=== PATIENT | male | born 1945 | race Hispanic/Latino ===

== ENCOUNTER 2018-03-23 19:28 | Inpatient (IN) | payer MEDICARE ==
[~2018-03-23 19:28] MED LIST: ISOVUE-370 76%-LOCM 1 ML ONE
[2018-03-23 19:59] LABS: #Basophils 0.1 thou/uL (0.0-0.2); #Eosinphils 0.3 thou/uL (0.0-0.7); #Lymphocytes 1.9 thou/uL (1.20-3.40); #Monocytes 0.5 thou/uL (0.11-0.59); #Neutrophils 5.5 thou/uL (1.40-6.50); %Basophils 0.8 % (0.0-1.0); %Eosinophils 3.6 % (0.0-10.0); %Lymphocytes 22.7 % (21.0-51.0); %Neutrophils 66.9 % (42.0-75.0); Mean Corpuscular HGB CONC 34.8 g/dL (32.0-36.0); Mean Corpuscular Hemoglobin 32.3 pg (27.0-31.0); Mean Corpuscular Volume 92.7 fl (80.0-94.0); Mean Platelet Volume 9.3 fL (7.4-10.4); Platelet Count 147 thou/uL (130-400); RBC Distribution Width 12.6 % (11.5-14.5); Red Blood Cell (RBC) Count 4.35 mill/uL (4.70-6.10); White Blood Cell (WBC) Count 8.3 thou/uL (4.8-10.8)
[2018-03-23 20:19] LABS: ALT (SGPT) 14 U/L (8-55); AST (SGOT) 16 U/L (5-34); Albumin 4.5 g/dL (3.4-4.8); Alkaline Phosphatase 83 U/L (40-150); Anion Gap 16 mmol/L (10-20); BUN (Urea Nitrogen) 26 mg/dL (8.4-25.7); Bilirubin, Total 0.5 mg/dL (0.2-1.2); Calc. Creatinine Clearance 0 mL/min (70-130); Calcium 10.5 mg/dL (7.8-10.44); Carbon Dioxide 20 mmol/L (23-31); Chloride 107 mmol/L (98-107); Estimated GFR-MDRD 78; Glucose 134 mg/dL (83-110); Protein, Total 8.5 g/dL (5.8-8.1); Sodium 138 mmol/L (136-145)
[2018-03-23] MEDS ORDERED: Ondansetron ODT 4 MG TAB ONE (21:02)
[2018-03-23 21:20] LABS: Bilirubin Negative (Negative); Blood, Urine Negative (Negative); Clarity CLEAR (Clear); Glucose, Urine (Dipstick) 100 mg/dL (Negative); Leukocyte Negative (Negative); Nitrite Negative (Negative); Protein, Urine (Dipstick) 30 mg/dL (Neg-Trace); Specific Gravity, Urine 1.024 (1.002-1.036); Urobilinogen 0.2 mg/dL (0.2-1.0)
[2018-03-23 21:22] LABS: Bacteria/HPF None Seen HPF (None Seen); Hyaline Casts/LPF 4-6 HYALINE CAST LPF (0-3 Hyaline); Pathc Cast-AUWi Flag 1.01 (0-2.49); Squamous Epithelial 0-3 HPF (0-3); WBC/HPF 0-3 HPF (0-3)
[2018-03-23] MEDS ORDERED: Fentanyl 100 MCG/2 ML VIAL ONE (21:58)
[2018-03-23 22:39] LABS: CK (CPK) 49 U/L (30-200); Lipase 71 U/L (8-78)
[2018-03-23 22:45] LABS: Troponin I Less than 0.010 ng/mL (< 0.028)
--- NOTE | 2018-03-23 22:49 | CT ---
CT ABDOMEN AND PELVIS WITH IV CONTRAST: 03/23/2018 PROVIDED CLINICAL HISTORY: Epigastric pain. FINDINGS: The visualized lung bases appear clear. The liver, spleen, pancreas, kidneys, and adrenal glands demonstrate an unremarkable CT appearance. There is a large tubular area of altered CT density involving the first, second, and third portions o f the duodenum. The Hounsfield units of this process are greater than would be expected for simple fl uid. This is likely intramural in nature, as this appears to extrinsically compress the duodenal lum en. This is suspicious for duodenal intramural hematoma. Foci of increased density within the presu med duodenal hematoma may reflect active extravasation. This is seen in the descending portion of th e duodenum, posteriorly. There is no significant gastric distention. There is no additional bowel dilatation, inflammatory fat stranding, free fluid, or free air apparent . Vascular calcifications are noted. The osseous structures demonstrate no concerning osteoblastic or osteolytic lesions. IMPRESSION: Findings suspicious for large intramural hematoma involving the first, second, and third portions of the duodenum, with possible active extravasation. Surgical consultation is recommended. Findings co mmunicated to Dr. Car at 10:31 p.m. on 03/23/2018. CODE CR POS: [facility]
[2018-03-23] MEDS ORDERED: Pantoprazole 40 MG VIAL ONE (23:05)
[2018-03-23] MEDS ORDERED: Promethazine HCl 25 MG/ML VIAL ONE (23:05)
[2018-03-24] MEDS ORDERED: Ondansetron ODT 4 MG TAB SL PRN ×2 (01:21→01:24)
[2018-03-24] MEDS ORDERED: Ondansetron HCl/PF 4 MG/2 ML Vial IVP PRN ×4 (01:21→15:52)
[2018-03-24] MEDS ORDERED: Promethazine HCl 25 MG/ML VIAL SLOW IVP PRN (01:21)
[2018-03-24] MEDS ORDERED: Labetalol HCl 100 MG/20 ML VIAL SLOW IVP PRN (01:43)
[2018-03-24 01:47] VITALS: BMI 20.9
[2018-03-24] MEDS: Sodium Chloride 0.9% 1,000 ML IV SCH (01:52)
[2018-03-24 02:05] LABS: Lactic Acid 2.4 mmol/L (0.5-2.2)
[2018-03-24] MEDS: Morphine 4 MG/ML VIAL SLOW IVP PRN ×3 (02:05→18:33)
[2018-03-24] MEDS: Pantoprazole 80 MG, Admixture Fee 1 EACH in Sodium Chloride 0.9% 100 ML IVP SCH ×2 (02:06→10:56)
[2018-03-24 02:15] LABS: Troponin I Less than 0.010 ng/mL (< 0.028)
[2018-03-24 05:18] LABS: #Lymphocytes 0.7 thou/uL (1.20-3.40); #Monocytes 0.2 thou/uL (0.11-0.59); %Basophils 0.2 % (0.0-1.0); %Eosinophils 0.2 % (0.0-10.0); %Lymphocytes 7.1 % (21.0-51.0); %Monocytes 1.6 % (0.0-10.0); %Neutrophils 90.9 % (42.0-75.0); Hemoglobin 12.9 g/dL (14.0-18.0); Mean Corpuscular HGB CONC 35.5 g/dL (32.0-36.0); Mean Corpuscular Hemoglobin 33.2 pg (27.0-31.0); Mean Corpuscular Volume 93.5 fl (80.0-94.0); Mean Platelet Volume 10.3 fL (7.4-10.4); Platelet Count 136 thou/uL (130-400); RBC Distribution Width 12.3 % (11.5-14.5); White Blood Cell (WBC) Count 9.9 thou/uL (4.8-10.8)
[2018-03-24] MEDS ORDERED: cloNIDine 0.1 MG TAB PO PRN (05:27)
[2018-03-24 05:35] LABS: Anion Gap 21 mmol/L (10-20); BUN (Urea Nitrogen) 26 mg/dL (8.4-25.7); Calc. Creatinine Clearance 59 mL/min (70-130); Calcium 9.6 mg/dL (7.8-10.44); Carbon Dioxide 18 mmol/L (23-31); Chloride 105 mmol/L (98-107); Estimated GFR-MDRD 76; Glucose 282 mg/dL (83-110); Magnesium 1.9 mg/dL (1.6-2.6); Phosphorus 4.3 mg/dL (2.3-4.7); Potassium 5.3 mmol/L (3.5-5.1); Sodium 139 mmol/L (136-145)
[2018-03-24 05:42] LABS: Troponin I 0.021 ng/mL (< 0.028)
[2018-03-24] MEDS ORDERED: Dextrose 5% in Water 1,000 ML IV PRN (08:02)
[2018-03-24] MEDS ORDERED: Acetaminophen 650 MG Suppository PR PRN (08:02)
[2018-03-24] MEDS ORDERED: HumaLOG 300 UNITS/3 ML VIAL SC PRN (08:02)
[2018-03-24] MEDS ORDERED: Dextrose 50% Abboject 50 ML SYRINGE SLOW IVP PRN (08:02)
--- NOTE | 2018-03-24 10:05 | CON ---
DATE OF CONSULTATION: 03/24/2018 REASON FOR CONSULTATION: Abdominal pain and severe weight loss. HISTORY: Mr. Corral is a 72-year-old male with history of hypertension and diabetes who presented to the ER last evening with worsening of his chronic abdominal pain. He relates having a 5-month his tory of having upper abdominal epigastric discomfort that is worsened by eating after dipak the flu over this winter. The pain is worsened with eating. He denies having any nausea or vomiting. He relates having early satiety. As a result, he has lost close to 25 pounds over the last 5 months. Yesterday afternoon the pain became much worse after eating some taco's. He did have associated na usea, vomiting. This prompted the ER evaluation. CT performed showed thickening of the duodenum wit h what appears to be an intramural process suggesting possible hematoma and a possible extravasation. However, he has not noted any overt bleeding or melena, however, the patient has poor eyesight. Hi s blood count was normal on admission. PAST MEDICAL HISTORY: 1. Hypertension. 2. Diabetes. 3. Negative screening colonoscopy [address] [facility] per patient. PAST SURGICAL HISTORY: No previous surgery. ALLERGIES: None. MEDICATIONS: At home include lisinopril 10 mg p.o. daily, metformin 1000 mg b.i.d., glyburide 2.5 mg every day. SOCIAL HISTORY: The patient is . He does smoke occasional cigar, consume 3-4 beers daily. FAMILY HISTORY: Negative for any known GI problem, liver disease, GI malignancy. REVIEW OF SYSTEMS: A 10-point review of systems was otherwise unremarkable without any pertinent pos itive or negative. PHYSICAL EXAMINATION: VITAL SIGNS: Temperature is 97.9, blood pressure 177/81, pulse of 80. GENERAL: He is alert, conversant, does not appear in any distress. HEENT: Shows anicteric sclerae. Oropharynx clear. NECK: Supple. CARDIOVASCULAR: Shows normal S1, S2 regular rate and rhythm. CHEST: Shows normal breath sounds, no adventitious sound. ABDOMEN: Flat. No distention, no tympany. He has active bowel sounds. Mild epigastric tenderness, but no guarding, tension or rebound. He has good bowel sounds. EXTREMITIES: Shows no edema. LABORATORY DATA: Electrolytes within normal range, creatinine 0.97, bilirubin 0.5, AST of 16, ALT 14 , alkaline phosphatase 83. WBC is 9.9, hemoglobin 12.9, platelet count of 136, MCV of 93.5. Abdominal pelvic CT showed suspicion for a large intramural hematoma involving most of the duodenum w ith possible active extravasation. Other intraabdominal organs appeared normal. ASSESSMENT: Abnormal CT with large intramural process involving the duodenum. Clinically, he does n ot have any overt gastrointestinal bleed. His blood count is otherwise normal. Symptomatically, he has had symptoms for the last 5-6 months suggests chronicity to his problem. A malignant process nee ds to be excluded. He has not had any blunt trauma other than a fall off a ladder on his lawn which he landed on his back 4 months ago. Abdominal exam is very benign at the present time. RECOMMENDATIONS: 1. Proceed with diagnostic esophagogastroduodenoscopy. 2. May need a diagnostic laparoscopy if EGD is nondiagnostic. 3. Indication including risks of procedure were discussed with patient and family, all questions ans wered.
[2018-03-24] MEDS ORDERED: Lidocaine 1% PF 5 ML VIAL ONE (12:05)
[2018-03-24] MEDS ORDERED: PROPOFOL 200 MG/20 ML VIAL ONE (12:05)
--- NOTE | 2018-03-24 14:14 | HP ---
REASON FOR ADMISSION: Duodenal mass/hematoma. HISTORY OF PRESENTING ILLNESS: Patient gives history of abdominal pain off and on from last 5 months. He states it all started after he had very bad flu. The patient also complains of loss of appetite and fullness soon after eating. He has not been eating much. He feels like he has got a knot in his epigastric area. He sometimes has to turn to left lateral side at night to get relief from discomfort after eating. He also mentions that he has lost nearly 23 pounds. He was weighing 174 pounds in October, currently 147 pounds. Around 11:00 a.m. yesterday, his abdominal pain and uneasy feeling came back. Around 3 :00 p.m. it got worse and he tried to lay down, but still did not get any relief. At 6:30 p.m., his finally decided to bring him to the emergency room as he vomited once at home. He further vomited nearly 4 times last night and once this morning. No complaints of any bleeding per rectum. The patient states he has had cataract surgery and does not really see well to see if he is bleeding. No hematemesis. No prior history of peptic ulcer disease. PAST MEDICAL AND SURGICAL HISTORY: History of hypertension, diabetes mellitus type 2, cataract surgery. CURRENT MEDICATIONS: Lisinopril 10 mg daily, metformin 1000 mg twice daily, glyburide 2.5 mg daily. ALLERGIES: No known drug allergies. PERSONAL HISTORY: Drinks 3-4 beers daily. Quit smoking 23 years ago, prior to which, smoked one pack a day for nearly 10 years. Does not abuse drugs. Lives with his . FAMILY HISTORY: Mother in her 70s, she had history of diabetes. He does not know much about his father as he is from his when he was a small kid. He is 1 among 13 siblings, three were killed, 2 at a very young age and only 3 are alive at present. None of the siblings have had cancer. CODE STATUS: FULL. Power of mergers and acquisitions attorney is his of 48 years. REVIEW OF SYSTEMS: The following complete review of systems was negative, unless otherwise mentioned in the HPI or below: Constitutional: Weight loss or gain, ability to conduct usual activities. Skin: Rash, itching. Eyes: Double vision, pain. ENT/Mouth: Nose bleeding, neck stiffness, pain, tenderness. Cardiovascular: Palpitations, dyspnea on exertion, orthopnea. Respiratory: Shortness of breath, wheezing, cough, hemoptysis, fever or night sweats. Gastrointestinal: Poor appetite, abdominal pain, heartburn, nausea, vomiting, constipation, or diarrhea. Genitourinary: Urgency, frequency, dysuria, nocturia. Musculoskeletal: Pain, swelling. Neurologic/Psychiatric: Anxiety, depression. Allergy/Immunologic: Skin rash, bleeding tendency. PHYSICAL EXAMINATION: GENERAL: Patient is a 72-year-old male who is currently not in any acute distress. VITAL SIGNS: Blood pressure 170/86, pulse 86 per minute, respiratory rate 20 per minute, temperature 97.7 degrees Fahrenheit, saturating 98% on room air. NECK: Supple, no elevated JVD. EYES: Extraocular muscles intact. Pupils reacting to light. ORAL CAVITY: Mucous membranes are dry. No exudates or congestion. CARDIOVASCULAR SYSTEM: S1, S2 heard. Regular rhythm. RESPIRATORY SYSTEM: Air entry 2+ bilateral. No rales or rhonchi. ABDOMEN: Soft. There is mild tenderness in the epigastric area. No rigidity or guarding. Bowel sounds are heard. EXTREMITIES: No peripheral edema or calf tenderness. VASCULAR SYSTEM: Peripheral pulses 1+ bilateral, no ischemic ulcerations or gangrene. CENTRAL NERVOUS SYSTEM: No gross focal deficits seen. Patient is alert, awake , oriented well. The patient likely has chronic small muscle wasting in both hands. PSYCHIATRIC SYSTEM: The patient's mood is euthymic. No hallucinations or delusions. IMAGING DATA AND LABORATORY DATA: CT of the abdomen and pelvis done with IV contrast showed findings suspicious for large intramural hematoma involving first, second, and third portions of duodenum with possible active extravasation , hemoglobin and hematocrit 14 and 40, platelet count 147. White count of 8, MCV is 92, BUN 26, creatinine 0.9. Serum glucose 282, phosphorus 4.3, and magnesium 1.9. Troponin x2 is negative. Albumin is 4.5. CRP is less than 0.5. Lactic acid 4.0. CLINICAL IMPRESSION AND PLAN: The patient will be admitted to telemetry for likely duodenal mass with CT findings of possible intramural hematoma. I have discussed his findings with Dr. Quinones and Dr. Amador for General Surgery and Gastroenterology. The plan is to first pursue upper endoscopy to see for any obvious findings of mass. He has had history of weight loss, loss of appetite and feeling of fullness soon after eating. He also has history of alcohol abuse and prior history of smoking. He will be kept n.p.o. for now and will be on normal saline at 70 mL per hour. He was also on Protonix drip as well. Morphine p.r.n. for pain. We will add his home diabetic medications once he is off n.p.o. status. For now, he will be covered with Accu-Cheks a.c. and at bedtime. His overall prognosis is guarded. SHANON
[2018-03-24] MEDS: Pantoprazole 40 MG VIAL IVP SCH (20:32)
--- NOTE | 2018-03-24 22:58 | OP ---
PROCEDURE: Esophagogastroduodenoscopy with biopsy. PHYSICIAN: Dr. Amador. ANESTHESIA: Premedication given per Anesthesiology Department. PREPROCEDURE DIAGNOSES: 1. Abnormal CT with abnormal findings involving the duodenum suggesting a large hematoma. 2. Epigastric pain. 3. Severe weight loss. POSTOPERATIVE DIAGNOSES: 1. Large duodenal mass extending into the duodenal bulb, partially obstructing, scope unable to pass into the duodenum. 2. Normal stomach and esophagus. PROCEDURE IN DETAIL: A written consent was obtained prior to procedure. After adequate sedation, th e forward-viewing endoscope was advanced down the hypopharynx under direct vision into the stomach. The esophagus appeared normal. GE junction was located at 40 cm. The gastric antrum, body, fundus, and cardia all appeared normal. The pylorus is patent. The endoscope was advanced into duodenal bul b. A large erythematous villous appearing mass was immediately visualized. The mass originated some what in the duodenum and extended to the duodenal bulb. The mass was rather large and almost complet jeffrey filled the duodenum. The endoscope was not able to traverse into the distal small bowel. Multip le biopsies were obtained from the lesion in 2 separate bottles. The instrument was then fully remov ed. The patient tolerated the procedure well. ASSESSMENT: Large duodenal tumor filling the duodenum extending to the bulb, scope unable to pass. RECOMMENDATIONS: 1. Await biopsy result. 2. Liquid feeding. Apparently, the lesion is not completely obstructing as contrast was able to be seen in the distal small bowel on CT.
[2018-03-25] MEDS: Sodium Chloride 0.9% 1,000 ML IV SCH ×4 (01:04→22:39)
[2018-03-25 04:03] LABS: #Eosinphils 0.1 thou/uL (0.0-0.7); #Lymphocytes 1.4 thou/uL (1.20-3.40); #Monocytes 0.7 thou/uL (0.11-0.59); %Basophils 0.4 % (0.0-1.0); %Eosinophils 0.8 % (0.0-10.0); %Lymphocytes 14.9 % (21.0-51.0); %Neutrophils 75.9 % (42.0-75.0); Hemoglobin 11.2 g/dL (14.0-18.0); Mean Corpuscular HGB CONC 34.1 g/dL (32.0-36.0); Mean Corpuscular Hemoglobin 31.9 pg (27.0-31.0); Mean Corpuscular Volume 93.5 fl (80.0-94.0); Mean Platelet Volume 10.1 fL (7.4-10.4); Platelet Count 137 thou/uL (130-400); RBC Distribution Width 12.8 % (11.5-14.5); Red Blood Cell (RBC) Count 3.52 mill/uL (4.70-6.10); White Blood Cell (WBC) Count 9.3 thou/uL (4.8-10.8)
[2018-03-25 04:16] LABS: Anion Gap 13 mmol/L (10-20); BUN (Urea Nitrogen) 23 mg/dL (8.4-25.7); Calc. Creatinine Clearance 68 mL/min (70-130); Calcium 8.9 mg/dL (7.8-10.44); Carbon Dioxide 21 mmol/L (23-31); Chloride 113 mmol/L (98-107); Estimated GFR-MDRD 89; Glucose 175 mg/dL (83-110); Potassium 4.1 mmol/L (3.5-5.1); Sodium 143 mmol/L (136-145)
[2018-03-25] MEDS: Pantoprazole 40 MG VIAL IVP SCH ×2 (10:14→20:47)
--- NOTE | 2018-03-25 11:34 | PDOC.PN ---
- Subjective Encounter Start Date: 03/25/18 Encounter Start Time: 13:00 Subjective: no sob, abd pain better -: still nauseous - Objective Resuscitation Status: Resuscitation Status FULL:Full Resuscitation MAR Reviewed: Yes Vital Signs & Weight: Vital Signs (12 hours) Temp Pulse Resp BP Pulse Ox 03/25/18 08:00 97.7 F 78 16 159/71 H 03/25/18 04:00 99.0 F 86 18 144/65 H 96 Weight Admit Weight 134 lb 3.2 oz Weight 134 lb 3.2 oz I&O: 03/24/18 03/25/18 03/26/18 06:59 06:59 06:59 Intake Total 700 Output Total 200 Balance 500 Result Diagrams: 03/25/18 03:11 03/25/18 03:11 Additional Labs: Accuchecks 03/25/18 03/25/18 03/24/18 10:47 05:44 20:18 POC Glucose 192 H 183 H 178 H 03/24/18 16:44 POC Glucose 215 H Phys Exam - Physical Examination HEENT: PERRLA, moist MMs Neck: no JVD, supple Respiratory: no wheezing, no rales Cardiovascular: RRR, no significant murmur Gastrointestinal: soft, no distention, positive bowel sounds Musculoskeletal: no edema, pulses present Neurological: non-focal, moves all 4 limbs Psychiatric: A&O x 3 Dx/Plan (1) Duodenal mass Code(s): K31.89 - OTHER DISEASES OF STOMACH AND DUODENUM Status: Acute (2) Weight loss Status: Acute (3) DM type 2 (diabetes mellitus, type 2) Status: Chronic Qualifiers: Diabetes mellitus falsework builder insulin use: without falsework builder use Diabetes mellitus complication status: with unspecified complications Qualified Code(s) : E11.8 - Type 2 diabetes mellitus with unspecified complications (4) HTN (hypertension) Code(s): I10 - ESSENTIAL (PRIMARY) HYPERTENSION Status: Chronic Qualifiers: Hypertension type: essential hypertension Qualified Code(s): I10 - Essential (primary) hypertension - Plan await histopath -: if malignant will need tx to [place] -: on clear liq diet -: to ambulate as tolerated -: tx to [facility] floor, d/w at length with multiple family in room * . Review of Systems - Medications/Allergies Allergies/Adverse Reactions: Allergies Allergy/AdvReac Type Severity Reaction Status Date / Time No Known Allergies Allergy Verified 03/24/18 02:20 Medications: Current Medications Acetaminophen (Tylenol) 650 mg [place] Q4H PRN PRN Reason: Headache/Fever or Pain Dextrose/Water (Dextrose 50%) 25 gm SLOW IVP PRN PRN PRN Reason: Hypoglycemia Glucagon (Glucagon) 1 mg IM PRN PRN PRN Reason: Hypoglycemia Sodium Chloride (Normal Saline 0.9%) 1,000 mls @ 75 mls/hr IV .[id number] [facility] Stop: 03/26/18 11:35 Last Admin: 03/25/18 10:15 Dose: 1,000 mls Dextrose/Water (D5w) 1,000 mls @ 0 mls/hr IV .Q0M PRN; As Directed PRN Reason: Hypoglycemia Insulin Human Lispro (Humalog) 0 units SC .MILD SLIDING SCALE PRN PRN Reason: Mild Correctional Scale Morphine Sulfate (Morphine) 2 mg SLOW IVP Q4H PRN PRN Reason: Pain Last Admin: 03/24/18 18:33 Dose: 2 mg Ondansetron HCl (Zofran) 4 mg IVP Q6H PRN PRN Reason: Nausea/Vomiting Last Admin: 03/24/18 18:33 Dose: 4 mg Pantoprazole Sodium (Protonix) 40 mg IVP Q12HR [facility] Last Admin: 03/25/18 10:14 Dose: 40 mg Sodium Chloride (Flush - Normal Saline) 10 ml IVF Q12HR [facility] Last Admin: 03/25/18 10:15 Dose: 10 ml Sodium Chloride (Flush - Normal Saline) 10 ml IVF PRN PRN PRN Reason: Saline Flush
[2018-03-25] MEDS ORDERED: Ketorolac Tromethamine 30 MG/ML VIAL IVP PRN (12:25)
--- NOTE | 2018-03-25 12:50 | PRG ---
DATE OF SERVICE: 03/25/2018 SUBJECTIVE: The patient continues to have nausea with intermittent abdominal pain in the epigastrium . No significant emesis. Tolerated some broth and jello. PHYSICAL EXAMINATION: VITAL SIGNS: Temperature is 97.7, blood pressure 159/71, pulse of 78. GENERAL: He is alert, conversant, in no distress. HEENT: Shows anicteric sclerae. NECK: Supple. CARDIOVASCULAR: Shows normal S1, S2. Regular rate and rhythm. CHEST: Shows normal breath sounds. ABDOMEN: Soft, nontender to palpation, no palpable mass or organomegaly. Good bowel sounds. EXTREMITIES: Shows no edema. LABORATORY DATA: WBC is 9.3, hemoglobin 11.2, platelet count of 137. Sodium 143, potassium 4.1, chl oride 113, CO2 21, creatinine 0.85, BUN of 23. ASSESSMENT: 1. Obstructing large duodenal mass, biopsy pending. 2. Abdominal pain, nausea, vomiting, weight loss secondary to #1. RECOMMENDATIONS: 1. Await biopsy result. 2. If patient can tolerate liquid diet and liquid supplement, can be discharged to home with outpati ent referral to determine resectability of the mass pending biopsy result. If the patient cannot wei erate liquid, we will need jejunostomy tube placement. 3. I will discontinue morphine to lessen the nausea and to try Toradol as needed for pain.
[2018-03-25] MEDS ORDERED: Metoclopramide HCl 10 MG/2 ML VIAL IVP PRN (13:09)
[2018-03-25] MEDS: Promethazine HCl 25 MG/ML VIAL IM/IV PRN (19:03)
[2018-03-26] MEDS: Promethazine HCl 25 MG/ML VIAL IM/IV PRN ×2 (05:32→20:05)
[2018-03-26] MEDS: Pantoprazole 40 MG VIAL IVP SCH ×2 (08:04→19:55)
--- NOTE | 2018-03-26 13:58 | PDOC.PN ---
- Subjective Encounter Start Date: 03/26/18 Encounter Start Time: 13:00 Subjective: still unable to keep liq down -: has abd dyscomfort as well - Objective Resuscitation Status: Resuscitation Status FULL:Full Resuscitation MAR Reviewed: Yes Vital Signs & Weight: Vital Signs (12 hours) Temp Pulse Resp BP BP Pulse Ox 03/26/18 12:07 98.0 F 84 16 179/74 H 98 03/26/18 08:00 98.6 F 82 16 97 03/26/18 07:45 98.6 F 82 16 173/69 H 97 03/26/18 04:00 98.2 F 85 16 162/67 H 98 Weight Admit Weight 134 lb 3.2 oz Weight 134 lb 3.2 oz I&O: 03/25/18 03/26/18 03/27/18 06:59 06:59 06:59 Intake Total 700 1775 Output Total 200 1625 Balance 500 150 Result Diagrams: 03/25/18 03:11 03/25/18 03:11 Additional Labs: Accuchecks 03/26/18 03/26/18 03/25/18 12:08 05:32 20:17 POC Glucose 180 H 180 H 187 H 03/25/18 16:57 POC Glucose 191 H Phys Exam - Physical Examination HEENT: PERRLA, moist MMs Neck: no JVD, supple Respiratory: no wheezing, no rales Cardiovascular: RRR, no significant murmur Gastrointestinal: soft, positive bowel sounds Musculoskeletal: no edema, pulses present Neurological: non-focal, moves all 4 limbs Psychiatric: normal affect, A&O x 3 Dx/Plan (1) Duodenal mass Code(s): K31.89 - OTHER DISEASES OF STOMACH AND DUODENUM Status: Acute (2) Weight loss Status: Acute (3) DM type 2 (diabetes mellitus, type 2) Status: Chronic Qualifiers: Diabetes mellitus penitentiary insulin use: without long term care social worker use Diabetes mellitus complication status: with unspecified complications Qualified Code(s) : E11.8 - Type 2 diabetes mellitus with unspecified complications (4) HTN (hypertension) Code(s): I10 - ESSENTIAL (PRIMARY) HYPERTENSION Status: Chronic Qualifiers: Hypertension type: essential hypertension Qualified Code(s): I10 - Essential (primary) hypertension - Plan histopath from biopsy of duodenum: no malignancy seen, its only mucosal lay -: will need j-tube for feeding or gastrojejunostomy -: will get MRCP to better define the area -: is on iv fluids, phenergan and toradol prn * . Review of Systems - Medications/Allergies Allergies/Adverse Reactions: Allergies Allergy/AdvReac Type Severity Reaction Status Date / Time No Known Allergies Allergy Verified 03/24/18 02:20 Medications: Current Medications Acetaminophen (Tylenol) 650 mg [place] Q4H PRN PRN Reason: Headache/Fever or Pain Dextrose/Water (Dextrose 50%) 25 gm SLOW IVP PRN PRN PRN Reason: Hypoglycemia Glucagon (Glucagon) 1 mg IM PRN PRN PRN Reason: Hypoglycemia Dextrose/Water (D5w) 1,000 mls @ 0 mls/hr IV .Q0M PRN; As Directed PRN Reason: Hypoglycemia Insulin Human Lispro (Humalog) 0 units SC .MILD SLIDING SCALE PRN PRN Reason: Mild Correctional Scale Ketorolac Tromethamine (Toradol) 30 mg IVP Q6H PRN PRN Reason: Pain Stop: 03/30/18 12:26 Pantoprazole Sodium (Protonix) 40 mg IVP Q12HR [facility] Last Admin: 03/26/18 08:04 Dose: 40 mg Promethazine HCl (Phenergan) 12.5 mg IM/IV Q6H PRN PRN Reason: Nausea/Vomiting Last Admin: 03/26/18 05:32 Dose: 12.5 mg Sodium Chloride (Flush - Normal Saline) 10 ml IVF Q12HR [facility] Last Admin: 03/26/18 08:04 Dose: 10 ml Sodium Chloride (Flush - Normal Saline) 10 ml IVF PRN PRN PRN Reason: Saline Flush
--- NOTE | 2018-03-26 14:37 | PRG ---
DATE OF SERVICE: 03/26/2018 SUBJECTIVE: The patient can only tolerate very small volume of liquid diet, perhaps 50 mL at each ti me. He does have nausea, but no vomiting. Minimal abdominal pain as long as he does not eat or drin k. PHYSICAL EXAMINATION: VITAL SIGNS: Temperature 98.0, blood pressure 179/74, pulse of 84. GENERAL: He is alert, conversant, in no distress. HEENT EXAM: Shows anicteric sclerae. Oropharynx clear. CARDIOVASCULAR EXAM: Shows normal S1 and S2, regular rate and rhythm. CHEST EXAM: Shows breath sounds. ABDOMEN: Essentially very soft, nontender, good bowel sounds. EXTREMITIES EXAM: Shows no edema. LABORATORY DATA: CEA 1.88. CA 19-9 of 20. Biopsy of the duodenal mass was benign with essentially duodenal mucosa with intramucosal hemorrhage. No malignancy or dysplasia. ASSESSMENT: 1. Large obstructing lesion in the duodenum, extending from the bulb, all the way down to the third portion of duodenum. A biopsy was benign. CT read out as a possible hematoma. 2. Obstructive process involving duodenum. Patient could not tolerate any significant p.o. intake. RECOMMENDATIONS: Transfer to tertiary care center in event patient may need to have a [place] proced ure, for which he is better served at a tertiary care center. He is currently medically stable other than malnutrition. I have discussed with Dr. Regalado, arrangement will be made for the patient to be transferred.
[2018-03-26 20:44] VITALS: BP 177/83; TEMP 98
--- NOTE | 2018-03-30 09:06 | DIS ---
DATE OF ADMISSION: 03/23/2018 DATE OF DISCHARGE: 03/26/2018 DISCHARGE DISPOSITION: To [facility] in [place]. PRIMARY DISCHARGE DIAGNOSIS: Duodenal mass for further workup. SECONDARY DISCHARGE DIAGNOSES: Weight loss, diabetes mellitus type 2, hypertension. PROCEDURES DONE DURING HOSPITALIZATION: The patient has had abdominal and pelvic CAT scan done on the day of admission, which showed findings suspicious for a large intramural hematoma involving first, second, and third portions of the duodenum with possible active extravasation. Upper endoscopy was done by Dr. Amador on 03/24/2018 which revealed large duodenal mass extending into the duodenal bulb, partially obstructing, scope unable to pass into the duodenum. Duodenal biopsy obtained showed peptic duodenopathy with intramucosal hemorrhage. No dysplasia or malignancy was seen. No celiac sprue was seen. H& H 11 and 32. CEA level 1.8. CA-19-9 20, BUN 26, creatinine 0.9. INPATIENT CONSULTS: Dr. Amador for Gastroenterology. DISCHARGE PLAN: The patient is being discharged to higher level of care to [facility] for further workup in [place]. BRIEF COURSE DURING HOSPITALIZATION: The patient initially got admitted on the with complaints of abdominal pain off and on for almost 5 months which has been gradually worsening. He also gives history of losing 23 pounds from October. In view of this history and initial CAT scan revealing possible duodenal mass, gastroenterology consultation with Dr. Amador was requested. The patient had a large duodenal mass and the scope was unable to pass through. He had biopsies done which was superficial and did not reveal any malignant pathology. The decision was made to transfer patient to a higher level of care for further workup for the mass and likely surgical consultation if it turns out to be malignant. The transfer center was involved for transferring patient to [facility] in [place]. Please see a [id number] documentation for the day of discharge on [employer]. [facility]
--- NOTE | 2018-03-30 12:14 | PQF ---
[employer] Reports Winform ViewerAGUSTINA TILLMAN MALIK MD [id number] [facility] [id number] CLINICAL DOCUMENTATION CLARIFICATION FORM: POST DISCHARGE Addendum to original discharge summary date: ____ Late entry note date: __ Please exercise your independent, professional judgment in responding to the clarification form. Clinical indicators are provided on the bottom of this form for your review. Please clarify the diagnosis of malnutrition, thank you. Please check appropriate box(s): [ ] Protein Calorie Malnutrition: [ ] Mild [ ] Moderate [ ] Severe [ ] Other Malnutrition (please specify) __ [ ] Underweight without malnutrition [ ] Cachexia [ ] Other diagnosis [ ] Unable to determine In addition, please specify: Present on Admission (POA): [ ] Yes [ ] No [ ] Unable to determine CLINICAL INDICATORS - SIGNS / SYMPTOMS / LABS BMI of __21.0 Two or More of the Following: Unintentional Insufficient Energy Intake Weight Loss Loss of Muscle Mass Loss of Subcutaneous Fat Localized/Generalized Fluid Accumulation Diminished Handgrip Strength RISK FACTORS Change in appetite / nausea / vomiting / diarrhea Inability to consume adequate caloric intake Chronic illness Medication TREATMENT: Dietary consult Nutritional supplements 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 Reports Winform ViewerAppetite stimulant - medication Moderate Malnutrition (in acute illness) Energy Intake: <75% of estimated energy requirement for > 7 days Weight Loss: 1-2%/1 week; 5%/ 1 month; 7.5%/3 months Other: mild body fat loss; mild muscle mass loss; mild fluid accumulation; Severe Malnutrition (in acute illness) Energy Intake: < 50% of estimated energy requirement for > 5 days Weight Loss: >1-2%/1 week; >5%/1 month; >7.5%/3 months Other: moderate body fat loss; moderate muscle mass loss; moderate- severe fluid accumulation; measurably reduced foot specialist strength Moderate Malnutrition (in chronic illness) Energy Intake: <75% of estimated energy requirement for >1 month Weight Loss: 5%/1 month; 7.5%/3 months; 10%/6 months; 20%/1 year Other: mild body fat loss; mild muscle mass loss; mild fluid accumulation Severe Malnutrition (in chronic illness) Energy Intake: <75% of estimated energy requirement for >1 month Weight Loss: >5%/1 month; >7.5%/3 months; >10%/6 months; >20%/1 year Other: severe body fat loss; severe muscle mass loss; severe fluid accumulation ; measurably reduced foot specialist strength (This form is maintained as a part of the permanent medical record) 2014 [employer]. All Rights Reserved [email or web address] [phone] I never saw this patient MTDD
== END 2018-03-26 21:30 | disposition short-term general hospital (02) | DRG 381 ==
LOC: ERS 19:28 → 2NO 23:35 → T4-B 03-25 20:41
PROVIDERS: ADMIT Internal Medicine; ATTEND Internal Medicine
PROC: 0DB98ZX Excision of Duodenum, Via Natural or Artificial Opening Endoscopic, Diagnostic (ICD-10-PCS; principal; 2018-03-24)
DX: K31.5 Obstruction of duodenum (principal); E46 Unspecified protein-calorie malnutrition; K92.2 Gastrointestinal hemorrhage, unspecified; I10 Essential (primary) hypertension; F17.290 Nicotine dependence, other tobacco product, uncomplicated; E11.9 Type 2 diabetes mellitus without complications; Z68.21 Body mass index [BMI] 21.0-21.9, adult; Z79.4 Long term (current) use of insulin; Z79.899 Other long term (current) drug therapy
CPT/HCPCS: 36415; 36416; 74177; 80048; 80053; 81003; 81015; 82378; 82553; 83605; 83690; 83735; 84100; 84484; 85025; 86140; 86301; 88305; 93005; 96365; 96375; 96376; A4216; C9113; J2001; J2270; J2405; J2550; J2704; J2765; J3010; J7050; Q0162

== ENCOUNTER 2021-02-27 10:05 | Outpatient (CLI) | payer MEDICARE ==
[2021-02-27 18:21] LABS: SARS-CoV-2 PCR by NAA Not Detected (NotDetected)
== END 2021-02-27 10:06 | disposition home or self-care (01) ==
LOC: LABBT 10:05
PROVIDERS: ATTEND Orthopaedic Surgery
DX: Z01.812 Encounter for preprocedural laboratory examination (principal); M54.5 Low back pain; Z20.822 Contact with and (suspected) exposure to COVID-19
CPT/HCPCS: U0003; U0005; 87635

== ENCOUNTER 2021-03-04 11:56 | Day surgery (SDC) | payer MEDICARE ==
[2021-03-01 13:49] VITALS: BMI 16.9
[2021-03-04] MEDS ORDERED: Fentanyl 100 MCG/2 ML VIAL ONE (13:27)
[2021-03-04] MEDS ORDERED: Famotidine/PF 20 mg/2ml Vial ONE (13:41)
[2021-03-04] MEDS ORDERED: ePHEDrine Sulfate 50 MG/10 ML VIAL ONE (14:00)
[2021-03-04] MEDS ORDERED: Lidocaine 1% PF 5 ML VIAL ONE (14:00)
[2021-03-04] MEDS ORDERED: PROPOFOL 200 MG/20 ML VIAL ONE (14:00)
[2021-03-04] MEDS ORDERED: HYDROcodone/Acetaminophen 5/325 mg Tablet ONE (15:37)
== END 2021-03-04 16:17 | disposition home or self-care (01) ==
LOC: SDC/OP 11:56
PROVIDERS: ATTEND Orthopaedic Surgery
DX: M54.5 Low back pain (principal); E11.9 Type 2 diabetes mellitus without complications; I10 Essential (primary) hypertension; M43.17 Spondylolisthesis, lumbosacral region; Z79.84 Long term (current) use of oral hypoglycemic drugs; Z79.899 Other long term (current) drug therapy
CPT/HCPCS: 72148; J2704; J3010; S0028